=== PATIENT | male | born 1960 | race Two or more races ===

== ENCOUNTER 2018-06-20 17:47 | Emergency (ER) | payer MEDICAID ==
[~2018-06-20] VITALS: Ht 175.3 cm; Wt 93.0 kg
[2018-06-20] MEDS ORDERED: ETOMIDATE 2 MG/ML VIAL IV ONE (17:50)
--- NOTE | 2018-06-20 18:10 | NUR ---
BLOOD SUGAR 395
[2018-06-20 18:28] LABS: BASOPHILS # (AUTO) 0.1 /CMM (0.0-0.2); BASOPHILS % (AUTO) 0.5 % (0.0-2.0); EOSINOPHILS % (AUTO) 0.1 % (0.0-6.0); LYMPHOCYTES # (AUTO) 0.8 /CMM (0.8-4.8); LYMPHOCYTES % (AUTO) 6.4 % (20.0-44.0); MEAN CORPUSCULAR HGB CONC 33 g/dl (31.0-36.0); MEAN CORPUSCULAR VOLUME 89 fL (80-96); MONOCYTES # (AUTO) 0.3 /CMM (0.1-1.30); MONOCYTES % (AUTO) 2.7 % (2.0-12.0); NEUTROPHILS # (AUTO) 11.4 /CMM (1.8-8.9); NEUTROPHILS % (AUTO) 90.3 % (43.0-81.0); PLATELET COUNT (AUTO) 247 /CMM (150-450); RED BLOOD CELL COUNT(AUTO) 6.93 MIL/uL (4.5-6.0); WHITE BLOOD COUNT (AUTO) 12.6 K/uL (4.3-11.0)
[2018-06-20] MEDS ORDERED: IV NS 0.9% 1,000 ML BAG IV ONE (18:30)
[2018-06-20] MEDS ORDERED: PROPOFOL 100 ML ONE (18:36)
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
[2018-06-20 18:37] LABS: HEMATOCRIT 62 % (39-51); HEMOGLOBIN 20.6 g/dL (13.5-17.5)
[2018-06-20 18:42] VITALS: BP 266/166
[2018-06-20 18:45] LABS: ALBUMIN 3.3 g/dL (3.4-5.0); BILIRUBIN,DIRECT 0.3 mg/dL (0.0-0.2); BILIRUBIN,TOTAL 1.1 mg/dL (0.2-1.0); CALCIUM, SERUM 9.7 mg/dL (8.5-10.1); POTASSIUM 3.3 mmol/L (3.5-5.1)
--- NOTE | 2018-06-20 18:52 | NUR ---
dr abreu accepted, spoke with dr soliz going to [facility]. transfer info will be called back
[2018-06-20 18:57] LABS: BILIRUBIN,URINE Negative (NEGATIVE); BLOOD, URINE Small Ery/uL (NEGATIVE); COLOR,URINE Yellow (YELLOW); KETONES,URINE 15 (NEGATIVE); LEUKOCYTE ESTERASE ,URINE Negative (NEGATIVE); NITRITE, URINE Negative (NEGATIVE); PROTEIN,URINE >=300 mg/dl (NEGATIVE); UGLUCOSE >=1000 mg/dL (NEGATIVE); UROBILINOGEN,URINE 0.2 EU/dL (0.2)
[2018-06-20 18:58] LABS: APPEARANCE,URINE SLIGHTLY CLOUDY (CLEAR)
[2018-06-20] MEDS ORDERED: PROPOFOL 10MG/ML 50ML 50 ML IV PRN (19:00)
[2018-06-20] MEDS ORDERED: NICARDIPINE IN NACL, ISO-OSM 200 ML IV PRN (19:00)
--- NOTE | 2018-06-20 19:04 | NUR ---
CARDENE IV STARTED
--- NOTE | 2018-06-20 19:09 | NUR ---
RT NOTE PATIENT WAS INTUBATED IN THE ER WITH 7.5 ET TUBE AT 20CM IN THE LIP . PATIENT WAS CONNECTED ON VENT WITH ORDERED SETTINGS. . PATIENT TOLERATED CURRENT VENT SETTINGS. ALARMS ARE ON AND AUDIBLE . VENT PLUGGED INTO RED OUTLET. WILL CONTINUE TO MONITOR PATIENT.
[2018-06-20 19:12] LABS: BACTERIA,URINE Few /HPF (None Seen); SQUAMOUS EPITHELIAL CELL,UR Rare /HPF (None Seen); WBC,URINE 0-2 /HPF (0-3)
[2018-06-20 20:25] VITALS: BP 200/111
--- NOTE | 2018-06-20 20:26 | NUR ---
VENT SETTINGS: TIDAL VOL: 500 RESP RATE: 14 PEAK FLOW: 60 PEEP: 5
[2018-06-20 21:20] LABS: LYMPHOCYTES % (MANUAL) 8 % (16-48); NEUTROPHILS % (MANUAL) 92 (42-76)
--- NOTE | 2018-06-20 21:28 | NUR ---
CALL FROM [facility]. PT ACCEPTED BY DR ALSTON. ICU [id number]. # FOR REPORT [phone] OPTION 1, [phone]
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
== END 2018-06-20 23:04 | disposition short-term general hospital (02) ==
LOC: ER 17:49
DX: I21.4 Non-ST elevation (NSTEMI) myocardial infarction (principal); I61.8 Other nontraumatic intracerebral hemorrhage; G91.1 Obstructive hydrocephalus; G93.40 Encephalopathy, unspecified; J96.00 Acute respiratory failure, unspecified whether with hypoxia or hypercapnia; D75.1 Secondary polycythemia; E11.65 Type 2 diabetes mellitus with hyperglycemia; F10.20 Alcohol dependence, uncomplicated; F15.10 Other stimulant abuse, uncomplicated; R41.82 Altered mental status, unspecified; I10 Essential (primary) hypertension; Y90.0 Blood alcohol level of less than 20 mg/100 ml
CPT/HCPCS: 31500; 36415; 51702; 70450; 71045; 80048; 80076; 80305; 80307; 81001; 82962; 83690; 84484; 85025; 85730; 87081; 93005; 96360; 99291; A4606; J3490; J7030; 81000-TC; G0480